=== PATIENT | male | born 1990 | race Caucasian/White ===

== ENCOUNTER 2023-03-18 17:36 | Inpatient (IN) | payer BC ==
[2023-03-18] MEDS ORDERED: Ondansetron PF 4 MG/2 ML Vial IVP PRN (19:03)
[2023-03-18] MEDS ORDERED: oxyCODONE 5 MG TAB PO PRN (19:14)
[2023-03-18] MEDS ORDERED: Dextrose 5% in Water 1,000 ML IV PRN (19:21)
[2023-03-18] MEDS ORDERED: Dextrose 50% Abboject 50 ML SYRINGE SLOW IVP PRN (19:21)
[2023-03-18] MEDS ORDERED: HumaLOG 300 UNITS/3 ML VIAL SC PRN (19:21)
[2023-03-18 20:05] LABS: #Eosinphils 0.1 thou/uL (0.0-0.7); #Lymphocytes 3.1 thou/uL (1.20-3.40); #Neutrophils 5.5 thou/uL (1.40-6.50); %Basophils 0.4 % (0.0-1.0); %Eosinophils 0.6 % (0.0-10.0); %Lymphocytes 31.9 % (21.0-51.0); Hemoglobin 14.8 g/dL (14.0-18.0); Mean Corpuscular HGB CONC 34.3 g/dL (32.0-36.0); Mean Corpuscular Hemoglobin 30.6 pg (27.0-31.0); Mean Corpuscular Volume 89.2 fl (78.0-98.0); Mean Platelet Volume 8.6 fL (7.4-10.4); Platelet Count 311 10x3/uL (130-400); RBC Distribution Width 12.7 % (11.5-14.5); Red Blood Cell (RBC) Count 4.83 mill/uL (4.70-6.10); White Blood Cell (WBC) Count 9.7 10x3/uL (4.8-10.8)
[2023-03-18 20:20] LABS: ALT (SGPT) 66 U/L (8-55); AST (SGOT) 36 U/L (5-34); Albumin 4.3 g/dL (3.5-5.0); Alkaline Phosphatase 82 U/L (40-110); Anion Gap 14 mmol/L (10-20); BUN (Urea Nitrogen) 11 mg/dL (8.9-20.6); Bilirubin, Total 0.6 mg/dL (0.2-1.2); CRP (Inflammatory) Less than 0.50 mg/dL (= or < 0.5); Calc. Creatinine Clearance 0 mL/min (70-130); Calcium 9.2 mg/dL (7.8-10.44); Carbon Dioxide 25 mmol/L (22-29); Chloride 104 mmol/L (98-107); Estimated GFR 101; Globulin 2.6 g/dL (2.4-3.5); Glucose 88 mg/dL (70-105); Protein, Total 6.9 g/dL (6.0-8.3); Sodium 139 mmol/L (136-145)
[2023-03-18 20:27] VITALS: BMI 59.1
[2023-03-18] MEDS: Ramipril 5 MG CAP PO SCH (21:42)
[2023-03-18] MEDS: methylPREDNISolone Sod Succ 1,000 MG in Sodium Chloride 0.9% 250 ML 250 ML IVPB SCH (21:43)
[2023-03-18] MEDS: Rosuvastatin 20 MG TAB PO SCH (21:43)
[2023-03-19] MEDS: Amlodipine 5 MG TAB PO SCH (09:09)
[2023-03-19] MEDS: Ramipril 5 MG CAP PO SCH ×2 (09:09→20:36)
[2023-03-19] MEDS ORDERED: Lorazepam 2 MG/ML VIAL SLOW IVP SCH (14:45)
[2023-03-19] MEDS: Rosuvastatin 20 MG TAB PO SCH (20:36)
[2023-03-19] MEDS: methylPREDNISolone Sod Succ 1,000 MG in Sodium Chloride 0.9% 250 ML 250 ML IVPB SCH (20:36)
[2023-03-20] MEDS: Amlodipine 5 MG TAB PO SCH (08:41)
[2023-03-20] MEDS: Ramipril 5 MG CAP PO SCH ×2 (08:41→20:06)
[2023-03-20] MEDS ORDERED: Lorazepam 2 MG/ML VIAL SLOW IVP SCH (08:45)
[2023-03-20] MEDS: methylPREDNISolone Sod Succ 1,000 MG in Sodium Chloride 0.9% 250 ML 250 ML IVPB SCH (20:06)
[2023-03-20] MEDS: Rosuvastatin 20 MG TAB PO SCH (20:06)
[2023-03-20 20:07] VITALS: BP 137/85
[2023-03-20 20:09] VITALS: TEMP 98.4
== END 2023-03-20 22:45 | disposition left against medical advice (07) | DRG 59 ==
LOC: ERS 17:36 → SUATTDRO 17:36 → T4-A 18:53
PROVIDERS: ADMIT Family Medicine; ATTEND Internal Medicine
DX: G35 Multiple sclerosis (principal); H46.9 Unspecified optic neuritis; G37.8 Other specified demyelinating diseases of central nervous system; E11.9 Type 2 diabetes mellitus without complications; Z88.8 Allergy status to other drugs, medicaments and biological substances; Z79.84 Long term (current) use of oral hypoglycemic drugs; Z79.899 Other long term (current) drug therapy; Z53.29 Procedure and treatment not carried out because of patient's decision for other reasons
CPT/HCPCS: 80053; 84443; 85025; 85652; 86140; 99284; J2060; J2930; J7050

== ENCOUNTER 2023-06-17 22:29 | Inpatient (IN) | payer BC, SELFPAY ==
[2023-06-18 00:10] LABS: #Basophils 0.1 thou/uL (0.0-0.2); #Eosinphils 0.3 thou/uL (0.0-0.7); #Neutrophils 7.2 thou/uL (1.40-6.50); %Basophils 0.4 % (0.0-1.0); %Eosinophils 2.3 % (0.0-10.0); %Lymphocytes 26.2 % (21.0-51.0); %Monocytes 8.8 % (0.0-10.0); Hemoglobin 14.3 g/dL (14.0-18.0); Mean Corpuscular HGB CONC 33.7 g/dL (32.0-36.0); Mean Corpuscular Hemoglobin 29.9 pg (27.0-31.0); Mean Corpuscular Volume 88.7 fl (78.0-98.0); Mean Platelet Volume 10.3 fL (7.4-10.4); Platelet Count 321 10x3/uL (130-400); RBC Distribution Width 12.2 % (11.5-14.5); Red Blood Cell (RBC) Count 4.78 mill/uL (4.70-6.10); White Blood Cell (WBC) Count 11.5 10x3/uL (4.8-10.8)
[2023-06-18] MEDS ORDERED: Hydrocortisone Sod Succ/PF 1,000 MG in Sodium Chloride 0.9% 250 ML 250 ML IVPB SCH (00:15)
[2023-06-18] MEDS ORDERED: METHYLPREDNISOLONE SOD SUCC ONE (00:24)
[2023-06-18] MEDS ORDERED: METHYLPREDNISOLONE SOD SUCC IVPB SCH (00:30)
[2023-06-18] MEDS ORDERED: SODIUM CHLORIDE 0.9% IVPB SCH (00:30)
[2023-06-18 00:34] LABS: ALT (SGPT) 41 U/L (8-55); AST (SGOT) 25 U/L (5-34); Alkaline Phosphatase 92 U/L (40-110); Anion Gap 14 mmol/L (10-20); BUN (Urea Nitrogen) 13 mg/dL (8.9-20.6); Bilirubin, Total 0.2 mg/dL (0.2-1.2); Calc. Creatinine Clearance 0 mL/min (70-130); Calcium 9.1 mg/dL (7.8-10.44); Carbon Dioxide 23 mmol/L (22-29); Chloride 104 mmol/L (98-107); Estimated GFR 95; Globulin 3.1 g/dL (2.4-3.5); Glucose 136 mg/dL (70-105); Potassium 3.8 mmol/L (3.5-5.1); Protein, Total 7.1 g/dL (6.0-8.3); Sodium 137 mmol/L (136-145)
[2023-06-18] MEDS ORDERED: methylPREDNISolone Sod Succ 1 GM in Sodium Chloride 0.9% 250 ML 250 ML IVPB SCH (01:00)
[2023-06-18] MEDS ORDERED: Ondansetron ODT 4 MG TAB SL PRN (01:15)
[2023-06-18] MEDS ORDERED: Acetaminophen 325 MG TAB PO PRN (01:15)
[2023-06-18] MEDS ORDERED: Ondansetron PF 4 MG/2 ML Vial IVP PRN (01:15)
[2023-06-18 03:05] VITALS: BMI 56.0
[2023-06-18 06:40] LABS: Anion Gap 14 mmol/L (10-20); BUN (Urea Nitrogen) 12 mg/dL (8.9-20.6); Calc. Creatinine Clearance 230 mL/min (70-130); Calcium 8.8 mg/dL (7.8-10.44); Carbon Dioxide 21 mmol/L (22-29); Chloride 105 mmol/L (98-107); Estimated GFR 84; Glucose 278 mg/dL (70-105); Potassium 4.1 mmol/L (3.5-5.1); Sodium 136 mmol/L (136-145)
[2023-06-18] MEDS ORDERED: Amlodipine 5 MG TAB PO SCH (09:00)
[2023-06-18] MEDS ORDERED: methylPREDNISolone Sod Succ/PF 125 MG/2 ML VIAL IVP SCH (09:00)
[2023-06-18] MEDS: metFORMIN 500 MG TAB PO SCH (09:32)
[2023-06-18] MEDS: Ramipril 5 MG CAP PO SCH ×2 (09:32→20:32)
[2023-06-18] MEDS: Rosuvastatin 20 MG TAB PO SCH (20:32)
[2023-06-18] MEDS: methylPREDNISolone Sod Succ 1 GM in Sodium Chloride 0.9% 250 ML 250 ML IVPB SCH (20:33)
[2023-06-19] MEDS: Ramipril 5 MG CAP PO SCH ×2 (08:45→20:25)
[2023-06-19] MEDS: metFORMIN 500 MG TAB PO SCH (08:45)
[2023-06-19] MEDS: Rosuvastatin 20 MG TAB PO SCH (20:25)
[2023-06-19] MEDS: methylPREDNISolone Sod Succ 1 GM in Sodium Chloride 0.9% 250 ML 250 ML IVPB SCH (20:26)
[2023-06-20] MEDS: Ramipril 5 MG CAP PO SCH (07:59)
[2023-06-20] MEDS: metFORMIN 500 MG TAB PO SCH (07:59)
[2023-06-20] MEDS ORDERED: methylPREDNISolone Sod Succ 1 GM in Sodium Chloride 0.9% 250 ML 250 ML IVPB SCH (11:00)
[2023-06-20] MEDS ORDERED: methylPREDNISolone Sod Succ 1 GM in Sodium Chloride 0.9% 100 ML IVPB SCH (11:00)
[2023-06-20] MEDS ORDERED: methylPREDNISolone Sod Succ/PF 125 MG/2 ML VIAL IVP SCH (12:00)
[2023-06-20 13:01] VITALS: BP 133/82; TEMP 97.6
== END 2023-06-20 13:58 | disposition home or self-care (01) | DRG 123 ==
LOC: ERS 22:29 → T4-A 06-18 01:10 → OBSVTOIN 06-18 01:10
PROVIDERS: ADMIT Student in an Organized Health Care Education/Training Program; ATTEND Internal Medicine
DX: H46.9 Unspecified optic neuritis (principal); G37.8 Other specified demyelinating diseases of central nervous system; Z68.43 Body mass index [BMI] 50.0-59.9, adult; E66.01 Morbid (severe) obesity due to excess calories; Z79.899 Other long term (current) drug therapy; Z88.8 Allergy status to other drugs, medicaments and biological substances; Z79.84 Long term (current) use of oral hypoglycemic drugs; E11.9 Type 2 diabetes mellitus without complications; I10 Essential (primary) hypertension; G35 Multiple sclerosis
CPT/HCPCS: 80048; 80053; 85025; 85652; 86140; 93005; 96361; 96365; 96376; G0378; J1720; J2930; J7050